=== PATIENT | female | born 1980 | race Caucasian/White ===

== ENCOUNTER 2022-05-28 11:54 | Outpatient (CLI) | payer BC, MEDICARE | END 2022-05-28 11:55 | disposition home or self-care (01) | LOC: CSHCT 11:54 | PROVIDERS: ATTEND Surgery | DX: K43.2 Incisional hernia without obstruction or gangrene (principal); N19 Unspecified kidney failure; Z99.2 Dependence on renal dialysis; T85.71XA Infection and inflammatory reaction due to peritoneal dialysis catheter, initial encounter; K65.8 Other peritonitis; Z90.5 Acquired absence of kidney | CPT/HCPCS: 74176 ==